=== PATIENT | male | born 1950 | race Hispanic/Latino ===

== ENCOUNTER → 2021-07-26 | Day surgery (SDC) | payer MEDICARE, OTHER ==
[~2021-07-26] MED LIST: AMLODIPINE BESYL5 MG PO; FUROSEMIDE40 MG PO; HUMALOG MI100 UNIT/2 SQ; LEVOTHYROXINE50 MCG PO; LIPITOR10 MG PO; RENAVITE PO; SODIUM CHLORIDE 0.9% 500ML 500 ML ONE; VIT D2 PO
[2021-07-26 10:24] LABS: BASOPHILS % 0.6 % (0.0-1.0); EOSINOPHILS # (AUTO) 0.1 (0.0-0.4); EOSINOPHILS % 1.6 % (0.0-6.0); LYMPHOCYTES # (AUTO) 1.2 (1.0-3.2); LYMPHOCYTES % 24.7 % (18.0-39.1); MEAN CORPUSCULAR HEMOGLOBIN 31.6 pg (28-32); MEAN CORPUSCULAR HGB CONC 31.4 g/dL (31-35); MEAN CORPUSCULAR VOLUME 100.6 fL (81-99); MONOCYTES # (AUTO) 0.5 (0.2-0.8); MONOCYTES % 9.3 % (4.4-11.3); NEUTROPHILS # (AUTO) 3.2 (2.1-6.9); NEUTROPHILS % 63.2 % (38.7-80.0); PLATELET COUNT 129 x10e3/uL (140-360); RED BLOOD COUNT 3.48 x10e6/uL (4.3-5.7); RED CELL DISTRIBUTION WIDTH 14.6 % (11.7-14.4)
[2021-07-26 10:45] LABS: ANION GAP 17.8 mmol/L (8-16); CALCIUM 9.4 mg/dL (8.4-10.2); CREATININE, SERUM 7.72 mg/dL (0.72-1.25); POTASSIUM 4.8 mmol/L (3.5-5.1)
[2021-07-26 10:55] LABS: INR 1.03; PROTHROMBIN TIME 13.7 seconds (11.9-14.5)
[2021-07-26 12:20] VITALS: BP 155/82
== END | disposition home or self-care (01) ==
LOC: OR 07:56
PROVIDERS: ATTEND Internal Medicine Gastroenterology
DX: Z12.11 Encounter for screening for malignant neoplasm of colon (principal); K57.30 Diverticulosis of large intestine without perforation or abscess without bleeding; K64.8 Other hemorrhoids; Z71.3 Dietary counseling and surveillance; E11.9 Type 2 diabetes mellitus without complications; E66.3 Overweight; E78.5 Hyperlipidemia, unspecified; E03.9 Hypothyroidism, unspecified; I12.0 Hypertensive chronic kidney disease with stage 5 chronic kidney disease or end stage renal disease; N18.6 End stage renal disease; Z88.1 Allergy status to other antibiotic agents; Z88.8 Allergy status to other drugs, medicaments and biological substances; Z01.810 Encounter for preprocedural cardiovascular examination; Z01.812 Encounter for preprocedural laboratory examination; Z20.822 Contact with and (suspected) exposure to COVID-19; Z79.4 Long term (current) use of insulin; Z68.29 Body mass index [BMI] 29.0-29.9, adult; Z99.2 Dependence on renal dialysis
CPT/HCPCS: 36415; 80048; 82948; 85025; 85610; 85730; 93005; G0121; J7040; U0002; 45378